=== PATIENT | male | born 1955 | race Caucasian/White ===

== ENCOUNTER 2022-01-12 09:04 | Outpatient (CLI) | payer SELFPAY ==
[2022-01-12 14:24] LABS: Albumin* 4.9 g/dL (3.3-5.0); Chloride* 101 mmol/L (96-114)
[2022-01-12 14:25] LABS: Potassium* 3.9 mmol/L (3.6-5.1); Sodium* 140 mmol/L (135-149)
[2022-01-12 14:26] LABS: Cholesterol* 209 mg/dL (90-199)
[2022-01-12 14:27] LABS: Alkaline Phosphatase* 136 U/L (40-150); Aspartate Amino Transferase* 30 U/L (12-35); Bilirubin Total* 0.7 mg/dL (0.1-1.5); Blood Urea Nitrogen* 19 mg/dL (7-30); Calcium* 9.8 mg/dL (8.4-10.6); Carbon Dioxide* 28 mmol/L (20-32); Creatine Kinase* 122 U/L (54-186); Creatinine* 1.1 mg/dL (0.5-1.5); Estimated Glomerular Filt Rate 75 ml/min; Glucose* 96 mg/dL (60-115); Total Protein* 7.6 g/dL (6.0-8.3); Triglycerides* 103 mg/dL (40-149)
[2022-01-12 14:28] LABS: Alanine Aminotransferase* 19 U/L (4-50); HDL Cholesterol* 60 mg/dL (>=40); LDL Cholesterol Calculated 128 mg/dL (<100)
[2022-01-12 14:58] LABS: PSA Screen* 0.75 ng/mL (0.10-4.00)
== END 2022-01-12 09:05 | disposition home or self-care (01) ==
PROVIDERS: PCP Internal Medicine; Visit Provider Family Medicine
DX: Z00.00 Encounter for general adult medical examination without abnormal findings (principal); E78.5 Hyperlipidemia, unspecified; I10 Essential (primary) hypertension; Z12.5 Encounter for screening for malignant neoplasm of prostate
CPT/HCPCS: 80053; 80061; 82550; 84153

== ENCOUNTER 2023-01-13 07:35 | Outpatient (CLI) | payer MEDICARE, BC, SELFPAY | END 2023-01-13 07:36 | disposition home or self-care (01) | PROVIDERS: PCP Internal Medicine; Referring Provider Internal Medicine; Visit Provider Family Medicine | DX: Z00.00 Encounter for general adult medical examination without abnormal findings (principal); E78.5 Hyperlipidemia, unspecified; I10 Essential (primary) hypertension; Z13.9 Encounter for screening, unspecified; Z13.6 Encounter for screening for cardiovascular disorders | CPT/HCPCS: 80048; 80053; 80061; 84153 ==

== ENCOUNTER 2023-01-30 07:02 | Outpatient (CLI) | payer MEDICARE, BC, SELFPAY ==
--- NOTE | 2023-01-30 07:15 | CRLHL7_ITS ---
For Patients: As a result of the Cures Act, medical imaging exams and procedure reports are released immediately into your electronic medical record. You may view this report before your referring provider. If you have questions, please contact your health care provider. Examination: US abdominal aorta Indication: Abdominal aortic aneurysm screening. Technique: Galo scale and color Doppler images of the aorta and common iliac arteries are obtained. Comparison: None Findings: Proximal aorta: 2.1 x 2.2 cm Mid aorta: 1.5 x 1.9 cm Distal aorta: 1.3 x 1.6 cm Right common iliac artery: 0.8 x 1.0 cm Left common iliac artery: 0.8 x 1.0 cm Impression: No abdominal aortic aneurysm. Dictated by Miguel Taylor MD @ 01/30/2023 9:47:00 AM (Electronically Signed)
== END 2023-01-30 07:03 | disposition home or self-care (01) ==
PROVIDERS: PCP Family Medicine; Visit Provider Family Medicine
DX: Z13.6 Encounter for screening for cardiovascular disorders (principal)
CPT/HCPCS: 76706

== ENCOUNTER 2024-01-29 08:06 | Outpatient (CLI) | payer MEDICARE, BC, SELFPAY | END 2024-01-29 08:07 | disposition home or self-care (01) | PROVIDERS: PCP Family Medicine; Referring Provider Family Medicine; Visit Provider Family Medicine | DX: Z00.00 Encounter for general adult medical examination without abnormal findings (principal); E78.5 Hyperlipidemia, unspecified; I10 Essential (primary) hypertension | CPT/HCPCS: 80053; 80061 ==

== ENCOUNTER 2025-01-16 07:49 | Outpatient (CLI) | payer MEDICARE, BC, SELFPAY | END 2025-01-16 07:50 | disposition home or self-care (01) | LOC: NFLDREF 01-20 03:29 | PROVIDERS: PCP Family Medicine; Referring Provider Family Medicine; Visit Provider Family Medicine | DX: E78.5 Hyperlipidemia, unspecified (principal) | CPT/HCPCS: 80053; 80061 ==

== ENCOUNTER 2025-02-13 07:34 | Outpatient (CLI) | payer MEDICARE, BC, SELFPAY ==
--- NOTE | 2025-02-13 08:00 | CRLHL7_ITS ---
For Patients: As a result of the Century Cures Act, medical imaging exams and procedure reports are released immediately into your electronic medical record. You may view this report before your referring provider. If you have questions, please contact your health care provider. Indication: Follow-up chest x-ray Technique: CT Chest WITH 75 CC ISOVUE 370 intravenous contrast Please note that all CT scans at this facility use dose modulation, iterative reconstruction, and/or weight-based dosing when appropriate to reduce radiation dose to as low as reasonably achievable. Comparison: Chest x-ray 01/20/2025 Findings: Scattered sub cm mediastinal lymph nodes noted. Small right-sided thyroid nodules which do require follow-up. No axillary adenopathy. Upper abdomen unremarkable with the exception of atherosclerotic changes in the aorta. Calcified right hilar lymph node. Calcified granulomas within the right lower lobe account for the radiographic density. Biapical pleural-parenchymal scarring including irregular subpleural nodules within the right lung apex, 1 measuring 9 millimeters, 4/95 and 1 measuring 11 millimeters, 4/108. Subpleural nodule at the left lung apex measures 8 millimeters, 3/20. no fracture. Impression: Benign calcified granulomas within the right lower lobe account for the radiographic density. Biapical pleural-parenchymal scarring with subpleural nodules in both lung apices, right greater than left, measuring up to 11 millimeters. Three-month follow-up chest CT recommended. Please note that all CT scans at this facility use dose modulation, iterative reconstruction, and/or weight-based dosing when appropriate to reduce radiation dose to as low as reasonably achievable. Dictated by Miguel Taylor MD @ 02/13/2025 8:17:56 AM (Electronically Signed)
== END 2025-02-13 07:35 | disposition home or self-care (01) ==
LOC: CT 07:34
PROVIDERS: PCP Family Medicine; Visit Provider Family Medicine
DX: R93.89 Abnormal findings on diagnostic imaging of other specified body structures (principal); R91.8 Other nonspecific abnormal finding of lung field
CPT/HCPCS: 71260; Q9967